=== PATIENT | female | born 1995 | race Caucasian/White ===

== ENCOUNTER → 2021-03-29 15:00 | Outpatient (BNVA) | payer SELFPAY | PROVIDERS: Family Provider Internal Medicine; Visit Provider Nurse Practitioner Women's Health | DX: Z01.419 Encounter for gynecological examination (general) (routine) without abnormal findings (principal); N94.6 Dysmenorrhea, unspecified; N93.9 Abnormal uterine and vaginal bleeding, unspecified | CPT/HCPCS: 88175 ==

== ENCOUNTER 2021-09-04 15:59 | Emergency (ER) | payer SELFPAY ==
[2021-09-04 16:09] VITALS: BP 139/81; PULSE 91; RESP 18; O2SAT 98; BMI 22.8
--- NOTE | 2021-09-04 16:22 | CTR_ITS ---
PROCEDURE INFORMATION: Exam: CT Abdomen And Pelvis With Contrast Exam date and time: 09/04/2021 4:22 PM Age: 25 years old Clinical indication: Abdominal pain; Localized; Right lower quadrant (rlq); Patient HX: C/O rlq abd pain x 3 days TECHNIQUE: Imaging protocol: Computed tomography of the abdomen and pelvis with contrast. Radiation optimization: All CT scans at this facility use at least one of these dose optimization techniques: automated exposure control; mA and/or kV adjustment per patient size (includes targeted exams where dose is matched to clinical indication); or iterative reconstruction. Contrast material: OMNI 300; Contrast volume: 75 ml; Contrast route: INTRAVENOUS (IV); COMPARISON: No relevant prior studies available. RADIATION DOSE METRICS: Total DLP (mGy-cm): 895.25 FINDINGS: Liver: There is mild periportal edema. The liver is otherwise homogeneous in density. Gallbladder and bile ducts: Normal. No calcified stones. No ductal dilation. Pancreas: Click adrenalsThe pancreas is normal. Spleen: The spleen is normal. Adrenal glands: Normal. No mass. Kidneys and ureters: There is an abnormal streaky enhancement pattern of both kidneys compatible with pyelonephritis with focal prominent area of hypodensity is specially in the upper pole left kidney with a poorly marginated rounded appearance measuring 3.2 cm. This appearance may reflect more focal pyelonephritis, early parenchymal abscess or possibly underlying renal mass. There is no evidence of renal calcifications. There is no evidence of hydronephrosis. Stomach and bowel: The wall of the descending colon is thickened but collapsed. This appearance may reflect lack of distention however mild colitis cannot be excluded. Appendix: A normal appendix is identified. Intraperitoneal space: Unremarkable. No free air. No significant fluid collection. Vasculature: Unremarkable.No abdominal aortic aneurysm. Lymph nodes: Unremarkable.No enlarged lymph nodes. Urinary bladder: The bladder is decompressed. Reproductive: Small right ovarian cysts are noted with the largest measuring 1.1 cm. The left ovary is unremarkable. There is 1 prominent varicosity in the left adnexa. The cervix is very prominent but the uterus is retroverted and axial images are obtained obliquely through the angulated cervix and uterus. This may simply be oblique imaging however the patient does have a trace amount of fluid in air in the cervix. Please correlate if there is any concern for infection/cervicitis. Bones/joints: Unremarkable. No acute fracture. Soft tissues: Unremarkable. CT/CT abdomen pelvis w con* [id number] IMPRESSION: 1. Bilateral pyelonephritis. Additional poorly defined area in the upper pole left kidney is concerning for more severe pyelonephritis, early parenchymal abscess or possibly underlying mass. Follow-up MRI may be helpful for further evaluation. 2. Prominent/enlarged poorly defined appearance of the cervix most of which is due to the retroverted cervix and uterus, however the patient does have a trace amount of fluid in air in the cervix. Please correlate if there is any concern for infection/cervicitis. 3. The wall of the descending colon is thickened but collapsed. This appearance may reflect lack of distention however mild colitis cannot be excluded. COMMENTS: Consistent with the [employer]'s Incidental Findings Committee white paper (J Am Dustin Radiol 2018): Any incidental renal lesion less than 1 cm or classified as too small to characterize, or any incidental cystic renal lesion characterized as simple-appearing, is likely benign. No follow-up imaging is recommended for these lesions per consensus recommendations based on imaging criteria. Radiation Dose CTDIVOL = (mGy): DLP = 895.25 (mGy-cm)
--- NOTE | 2021-09-04 16:27 | W.ED.ABDPA2 ---
HPI - Abdominal Pain General: Chief Complaint: Abdominal Pain Stated Complaint: RLQ ABD PAIN: SENT BY [facility] Time Seen by Provider: 09/04/21 16:06 Source: patient Mode of arrival: ambulatory Limitations: no limitations History of Present Illness: HPI narrative: 25-year-old female states she been having left lower quadrant abdominal pain over the last 3 days. States it also radiates into her left flank has some diffuse abdominal pain as well. States she had a fever up to 102. Denies any vomiting or diarrhea. Denies any worsening improving factors. Denies any vaginal bleeding or discharge. MD elicited complaint: abdominal pain Associated Symptoms: Reports chills and fever(s); Denies dysuria Related Data: Date of Last Menstrual Period: 08/24/21 Review of Systems Const: Reports: fever(s) and chills Eyes: Denies: blurry vision or eye discomfort ENMT: Denies: throat pain or dental pain Card: Denies: chest pain Resp: Denies: dyspnea GI: Reports: abdominal pain : Denies: dysuria Musc: Denies: neck pain or back pain Skin/Breast: Denies: rash Neuro: Denies: headache(s) Psych: Denies: depression [place]/Lymph: Denies: easy bruising All/Imm: Denies: urticaria PFSH ED PFSH: Medical History Abnormal uterine bleeding (AUB) 03/13/2019---> free testosterone-normal at 2.3 Prolactin-minimally elevated at 24 (normal-2-23.3) Impression: -Discussed with her that the exam today showed a normal size uterus but no definite masses. Did discuss menorrhagia could be secondary to hormonal changes like hyperthyroidism, elevated prolactin levels, estrogen/progesterone imbalance, uterine pathology like endometrial polyps, fibroids, adenomyosis or ovarian pathology like cysts. I discussed that in order to differentiate these we would need to do further testing like TSH, prolactin levels. Would also require a pelvic sonogram to further assess the uterus and ovaries. -Discussed with her that based on her symptoms she is may have heavy bleeding and is associated dysmenorrhea and I do not think she actually of endometriosis. Reviewed the differential diagnosis of dysmenorrhea-see discussion below -I discussed briefly the management of menorrhagia. I discussed that there was medical as well as surgical options. Discussed options of combined contraception as well as progesterone only medication and all her questions were answered to her satisfaction. She would like to start with combined oral contraceptive pills. -We will obtained records of all the lab work done from [facility] first and then if there are any labs pending we will do that testing. -We will contact her when we have obtained these lab results. Dysmenorrhea -Differential diagnosis of dysmenorrhea discussed with patient. Based on exam exams within normal limits. Patient did not want Pap smear done here today and she would like to have Pap smear done at the [facility] as she is self-pay at this time. -Discussed I would recommend a pelvic ultrasound to rule out any other structural abnormalities causing dysmenorrhea. Discussed is definitely a possibility for the causes of dysmenorrhea would not be on my list of diagnoses. Discussed I would recommend treatment with hormones for at least 3-6 months and if there is no improvement during this time frame I think the next step would need to be a diagnostic laparoscopy to see if she truly does have endometriosis. -She and her family are in agreement with this plan of care. We'll plan for a transvaginal ultrasound in the next 2-3 weeks and I will call her with results. No pertinent past medical history neghx: htn,dm,thyroid,dvt/pe Surgical History No pertinent past surgical history Family History Mother Hypertension Thyroid disease Grandmother Hypertension Maternal Denies family history of Colon cancer Ovarian cancer Diabetes Heart disease Breast cancer Bleeding disorder Uterine cancer Stroke Female Reproductive History: Date of last menstrual period: 08/24/21 Physical Exam Const: COMMON NORMALS: no acute distress, patient oriented x3 and healthy appearing HENMT: COMMON NORMALS: normocephalic and atraumatic HEAD & SCALP: normocephalic and atraumatic Eye: COMMON NORMALS: Equal, round and reactive pupils present and EOMs intact bilaterally PUPIL: Yes Equal, round and reactive pupils present Neck/C-Spine: COMMON NORMALS: full ROM and supple Chest: COMMONS NORMALS: normal inspection of the chest and normal palpation of entire chest wall Resp: COMMON NORMALS: normal respiratory effort, No retractions, No use of accessory muscles and clear to auscultation bilaterally AUSCULTATION: clear to auscultation bilaterally Cardio: COMMON NORMALS: regular rate, regular rhythm and No murmurs present (Cardio) RATE: regular rate RHYTHM: regular rhythm GI: COMMON NORMALS: Normal to inspection, nondistended, normoactive bowel sounds present, Soft to palpation, non-tender and no masses PALPATION: Yes Soft to palpation and Yes Tenderness to palpation present (GI) Details: LLQ Extremity: COMMON NORMALS: normal to inspection and full ROM Neuro: COMMON NORMALS: patient oriented x3, moves all extremities and no focal motor deficits Psych: COMMON NORMALS: mental status grossly normal, Normal thought process present and cooperative THOUGHT PROCESS: Normal thought process present Skin: COMMON NORMALS: no rashes or lesions noted and no wounds GENERAL SKIN EXAM: no rashes or lesions noted Course Vital Signs: Vital signs: Vital Signs Pulse Rate 89 09/04/21 20:59 Respiratory Rate 18 09/04/21 20:59 Blood Pressure 119/89 09/04/21 20:59 Pulse Oximetry 98 09/04/21 20:59 MDM - Abdominal Pain MDM Narrative: Medical decision making narrative: Patient presents for bilateral pyelonephritis with possible early abscess. I did go over these findings with her. She states she feels much improved and would really like to go home. I recommended admission due to her white count and her CT findings. She states that she would rather go home on oral antibiotics. With shared decision making I did express to her at length that we will place her on Cipro did give her IV antibiotics here. I informed her if she has fever or any worsening symptoms whatsoever she is to return to the ER immediately and will need to be admitted 5 antibiotics. She understands and agrees to this plan. She is to follow-up PCP in 3 to 5 days. Lab Data: Labs: Lab Results 09/04/21 09/04/21 09/04/21 16:53 17:01 17:01 WBC 15.1 10^3/uL H 10 ^3/uL (4.0-10.0) RBC 4.88 10^6/uL 10^6 /uL (4.1-5.3) Hgb 14.3 g/dL g/dL (11.5-15.3) Hct 42.4 % % (37.0-47.0) MCV 86.9 fl fl (81-99) MCH 29.3 pg pg (28.0-34.0) MCHC 33.7 g/dL g/dL (30.0-36.0) RDW 12.0 % L % (12.1-15.1) Plt Count 246 10^3/cmm 10^3 /cmm (130-400) MPV 10.6 fL H fL (7.4-10.4) Neut % (Auto) 78.6 % % Lymph % (Auto) 11.6 % % [place] % (Auto) 8.6 % % Eos % (Auto) 0.3 % % Baso % (Auto) 0.4 % % Neut # (Auto) 11.82 10^3/uL H 1 0^3/uL (1.8-7.7) Lymph # (Auto) 1.8 10^3/uL 10^3/ uL (0.8-4.8) [place] # (Auto) 1.3 10^3/uL H 10^ 3/uL (0.2-0.9) Eos # (Auto) 0.1 10^3/uL 10^3/ uL (0.0-0.8) Baso # (Auto) 0.1 10^3/uL 10^3/ uL (0.0-0.1) Nucleated RBC % (a uto) 0 % % Nucleated RBCs # 0.0 /100WBC /100W BC Sodium 139 mmol/L mmol/L (136-145) Potassium 3.3 mmol/L L mmol /L (3.5-5.1) Chloride 102 mmol/L mmol/L (98-107) Carbon Dioxide 25 mmol/L mmol/L (22-29) Anion Gap 15.3 (5-19) BUN 7 mg/dL mg/dL (6-20) Creatinine 0.7 mg/dL mg/dL (0.5-0.9) GFR Calculation 102.8 mL/min mL/m in (90-130) Glucose 88 mg/dL mg/dL (65-115) Calculated Osmolal ity 285 mOsm/kg mOsm/ kg (285-295) Calcium 9.3 mg/dL mg/dL (8.5-10.5) Total Bilirubin 0.3 mg/dL mg/dL (0.15-1.2) AST 13 U/L U/L (0-32) ALT 10 U/L U/L (0-33) Alkaline Phosphata se 70 IU/L IU/L (35-105) Total Protein 7.5 g/dL g/dL (6.6-8.7) Albumin 4.0 g/dL g/dL (3.5-5.2) Globulin 3.5 g/dL g/dL (1.3-4.6) Lipase 22 U/L U/L (13-60) HCG, Qual Urine Color Yellow (Yellow) Urine Appearance Sl hazy (CLEAR) Urine pH 5 (5-7) Ur Specific Gravit y 1.020 (1.005-1.030) Urine Protein Trace (Negative) Urine Glucose (UA) Norm (Normal) Urine Ketones 1+ H (Negative) Urine Blood 3+ H (Negative) Urine Nitrate Negative (Negative) Urine Bilirubin Neg (Negative) Urine Urobilinogen 1 mg/dL H mg/dL (Negative) Ur Leukocyte Macy ase Negative (Negative) Urine RBC 15-25 /hpf H /hpf (0-2) Urine WBC 5-10 /hpf H /hpf (0-5) Ur Squamous Epith Cells 0-4 /hpf H /hpf (0-5) Amorphous Sediment Not Reportable Urine Bacteria 3+ /hpf H /hpf (NONE) Urine Mucus 2+ /hpf /hpf 09/04/21 17:01 WBC RBC Hgb Hct MCV MCH MCHC RDW Plt Count MPV Neut % (Auto) Lymph % (Auto) [place] % (Auto) Eos % (Auto) Baso % (Auto) Neut # (Auto) Lymph # (Auto) [place] # (Auto) Eos # (Auto) Baso # (Auto) Nucleated RBC % (a uto) Nucleated RBCs # Sodium Potassium Chloride Carbon Dioxide Anion Gap BUN Creatinine GFR Calculation Glucose Calculated Osmolal ity Calcium Total Bilirubin AST ALT Alkaline Phosphata se Total Protein Albumin Globulin Lipase HCG, Qual Negative (Negative) Urine Color Urine Appearance Urine pH Ur Specific Gravit y Urine Protein Urine Glucose (UA) Urine Ketones Urine Blood Urine Nitrate Urine Bilirubin Urine Urobilinogen Ur Leukocyte Macy ase Urine RBC Urine WBC Ur Squamous Epith Cells Amorphous Sediment Urine Bacteria Urine Mucus Imaging Data ^: CT Abd/Pel: Attestation: I personally reviewed and interpreted this imaging study as follows: Radiologist's impression: imaging criteria. Radiation Dose CTDIVOL = (mGy): DLP = 895.25 (mGy-cm) Dictated By: Ai Sanchez Signed By: Ai Sanchez Signed Date/Time: 09/04/212115 DD/ [id number] [address] [address] Scan Report Signed Patient: Beverly Sneed Unit #: [id number] : 1995 Age/Sex: 25 / F ADM Date: 09/04/21 Loc: ER Room/Bed: Attending Dr: Ordering Provider/Ordering MD: Blessing Warren MD Date of Service: 09/04/21 Procedure(s): CT abdomen pelvis w con* [id number] Accession Number(s): [id number] Report Number: [id number] PROCEDURE INFORMATION: Exam: CT Abdomen And Pelvis With Contrast Exam date and time: 09/04/2021 4:22 PM Age: 25 years old Clinical indication: Abdominal pain; Localized; Right lower quadrant (rlq); Patient HX: C/O rlq abd pain x 3 days TECHNIQUE: Imaging protocol: Computed tomography of the abdomen and pelvis with contrast. Radiation optimization: All CT scans at this facility use at least one of these dose optimization techniques: automated exposure control; mA and/or kV adjustment per patient size (includes targeted exams where dose is matched to clinical indication); or iterative reconstruction. Contrast material: OMNI 300; Contrast volume: 75 ml; Contrast route: INTRAVENOUS (IV); COMPARISON: No relevant prior studies available. RADIATION DOSE METRICS: Total DLP (mGy-cm): 895.25 FINDINGS: Liver: There is mild periportal edema. The liver is otherwise homogeneous in density. Gallbladder and bile ducts: Normal. No calcified stones. No ductal dilation. Pancreas: Click adrenalsThe pancreas is normal. Spleen: The spleen is normal. Adrenal glands: Normal. No mass. Kidneys and ureters: There is an abnormal streaky enhancement pattern of both kidneys compatible with pyelonephritis with focal prominent area of hypodensity is specially in the upper pole left kidney with a poorly marginated rounded appearance measuring 3.2 cm. This appearance may reflect more focal pyelonephritis, early parenchymal abscess or possibly underlying renal mass. There is no evidence of renal calcifications. There is no evidence of hydronephrosis. Stomach and bowel: The wall of the descending colon is thickened but collapsed. This appearance may reflect lack of distention however mild colitis cannot be excluded. Appendix: A normal appendix is identified. Intraperitoneal space: Unremarkable. No free air. No significant fluid collection. Vasculature: Unremarkable.No abdominal aortic aneurysm. Lymph nodes: Unremarkable.No enlarged lymph nodes. Urinary bladder: The bladder is decompressed. Reproductive: Small right ovarian cysts are noted with the largest measuring 1.1 cm. The left ovary is unremarkable. There is 1 prominent varicosity in the left adnexa. The cervix is very prominent but the uterus is retroverted and axial images are obtained obliquely through the angulated cervix and uterus. This may simply be oblique imaging however the patient does have a trace amount of fluid in air in the cervix. Please correlate if there is any concern for infection/cervicitis. Bones/joints: Unremarkable. No acute fracture. Soft tissues: Unremarkable. CT/CT abdomen pelvis w con* [id number] IMPRESSION: 1. Bilateral pyelonephritis. Additional poorly defined area in the upper pole left kidney is concerning for more severe pyelonephritis, early parenchymal abscess or possibly underlying mass. Follow-up MRI may be helpful for further evaluation. 2. Prominent/enlarged poorly defined appearance of the cervix most of which is due to the retroverted cervix and uterus, however the patient does have a trace amount of fluid in air in the cervix. Please correlate if there is any concern for infection/cervicitis. 3. The wall of the descending colon is thickened but collapsed. This appearance may reflect lack of distention however mild colitis cannot be excluded. Discharge Plan Discharge Patient Disposition: Home Clinical Impression: Pyelonephritis Condition: Stable Prescriptions: New hydrocodone-acetaminophen 5-325 mg tablet 1 tab PO Q6H PRN (Reason: pain) Qty: 14 RF: 0 ondansetron 4 mg tablet,disintegrating 4 mg PO Q6H PRN (Reason: nausea and vomiting) Qty: 14 RF: 0 ciprofloxacin HCl 500 mg tablet 500 mg PO BID Qty: 14 RF: 0 No Action norethindrone-e.estradiol-iron [Loestrin Fe 1.5/30 (28-Day)] 1.5 mg-30 mcg (21)/75 mg (7) tablet 1 tab PO DAILY Qty: 84 RF: 3 Discharge Orders: Discharge ED (Routine); Ordered 09/04/21 Ordered By: Blessing Warren Referrals: Mayela Denis DO [Primary Care Provider] - Discharge Diet: Advance as tolerated Discharge Activity: Resume usual activity Patient Instructions: Kidney Infection (ED), Opioid Safety Coding Level of Care Code ED [employer] for Ruthg Fwd Exam Comprehensive
[2021-09-04 17:05] VITALS: BP 113/64; PULSE 64; RESP 18; O2SAT 100
[2021-09-04 17:08] VITALS: RESP 20
[2021-09-04] MEDS: morphine 4 mg/mL SDV 1 mL IVP (17:08)
[2021-09-04] MEDS: ondansetron 2 mg/ML SDV 2 mL 4 MG IVP (17:09)
[2021-09-04] MEDS: sodium chloride 0.9% 1,000 ML 999 ML IV (17:09)
[2021-09-04 17:34] LABS: Basophils # 0.1 10^3/uL (0.0-0.1); Basophils % 0.4 %; Eosinophils # 0.1 10^3/uL (0.0-0.8); Eosinophils % 0.3 %; Hematocrit 42.4 % (37.0-47.0); Hemoglobin 14.3 g/dL (11.5-15.3); Lymphocytes # 1.8 10^3/uL (0.8-4.8); Lymphocytes % 11.6 %; Mean Corpuscular HGB Conc 33.7 g/dL (30.0-36.0); Mean Corpuscular Hemoglobin 29.3 pg (28.0-34.0); Mean Corpuscular Volume 86.9 fl (81-99); Mean Platelet Volume 10.6 fL (7.4-10.4); Monocytes # 1.3 10^3/uL (0.2-0.9); Monocytes % 8.6 %; Neutrophils # 11.82 10^3/uL (1.8-7.7); Neutrophils % 78.6 %; Nucleated Red Blood Cells % 0 %; Platelet Count 246 10^3/cmm (130-400); Red Blood Count 4.88 10^6/uL (4.1-5.3); White Blood Count 15.1 10^3/uL (4.0-10.0)
[2021-09-04 17:46] LABS: HCG, Serum Qual Negative (Negative)
[2021-09-04 17:49] LABS: Add Urine Microscopic? YES; Bilirubin Urine Neg (Negative); Blood Urine 3+ (Negative); Glucose Urine UA Norm (Normal); Ketones Urine 1+ (Negative); Leukocyte Esterase Urine Negative (Negative); Nitrate Urine Negative (Negative); Protein Urine Trace (Negative); Urine Appearance SL Hazy (CLEAR); Urine Color Yellow (Yellow); Urobilinogen Urine 1 mg/dL (Negative); pH Urine 5 (5-7)
[2021-09-04 17:50] LABS: RBC Urine 15-25 /hpf (0-2); Squamous Epithelial Cell Urine 0-4 /hpf (0-5)
[2021-09-04 17:51] LABS: Add Urine Culture? Yes; Bacteria Urine 3+ /hpf; Mucus Urine 2+ /hpf
[2021-09-04 17:55] LABS: Alanine Aminotransferase 10 U/L (0-33); Alkaline Phosphatase 70 IU/L (35-105); Anion Gap 15.3 (5-19); Aspartate Amino Transferase 13 U/L (0-32); Blood Urea Nitrogen 7 mg/dL (6-20); Calcium 9.3 mg/dL (8.5-10.5); Carbon Dioxide 25 mmol/L (22-29); Chloride 102 mmol/L (98-107); Globulin 3.5 g/dL (1.3-4.6); Glomerular Filtration Rate 102.8 mL/min (90-130); Glucose 88 mg/dL (65-115); Lipase 22 U/L (13-60); Osmolality Calculated 285 mOsm/kg (285-295); Potassium 3.3 mmol/L (3.5-5.1); Sodium 139 mmol/L (136-145); Total Bilirubin 0.3 mg/dL (0.15-1.2); Total Protein 7.5 g/dL (6.6-8.7)
[2021-09-04] MEDS: iohexol 300 mg/mL 100 mL Btl IV (17:55)
[2021-09-04] MEDS: cefTRIAXone 1,000 MG in sodium chloride 0.9% (plus) 50 ML 100 MG IV (18:21)
[2021-09-04 20:59] VITALS: BP 119/89; PULSE 89; RESP 18; O2SAT 98
[2021-09-04 21:34] VITALS: BP 112/77; PULSE 76; RESP 18; O2SAT 100
== END 2021-09-04 21:35 | disposition home or self-care (01) ==
PROVIDERS: Emergency Provider Emergency Medicine; PCP Internal Medicine
DX: N12 Tubulo-interstitial nephritis, not specified as acute or chronic (principal)
CPT/HCPCS: 74177; 80053; 81001; 83690; 84703; 85025; 87077; 87086; 87186; 96365; 96375; 99284; J0696; J2270; J2405; J7030; Q9967

== ENCOUNTER → 2023-01-03 10:36 | Outpatient (BNVA) | payer OTHER, SELFPAY | PROVIDERS: PCP Internal Medicine; Visit Provider Registered Nurse Neonatal Intensive Care | DX: J02.9 Acute pharyngitis, unspecified (principal) | CPT/HCPCS: 87880 ==

== ENCOUNTER 2023-03-03 21:18 | Emergency (ER) | payer OTHER, SELFPAY ==
--- NOTE | 2023-03-03 21:20 | XRR_ITS ---
PROCEDURE INFORMATION: Exam: XR Right Hand Exam date and time: 03/03/2023 9:32 PM Age: 27 years old Clinical indication: Injury or trauma; Other: 3rd finger got caught; Other: Finger caught; Pulled; Possible crush; Patient HX: Per PT - right 3rd finger was caught somehow while working with a mayela TECHNIQUE: Imaging protocol: Radiologic exam of the right hand. Views: 3 or more views. COMPARISON: No relevant prior studies available. FINDINGS: Bones/joints: There are oblique fractures through the distal aspect of the 3rd digit distal phalanx. Soft tissues: Edema and/or hematoma is present in the soft tissues adjacent to the fracture site. XR/XR hand RT min 3V* [id number] IMPRESSION: There are oblique fractures through the distal aspect of the 3rd digit distal phalanx.
[2023-03-03 21:24] VITALS: BP 143/87; PULSE 87; RESP 16; TEMP 37; O2SAT 99; BMI 24.7
--- NOTE | 2023-03-03 21:31 | ED_ITS ---
HPI - Extremity Problem General: Chief complaint: Extremity Injury, Upper Stated complaint: right hand injury Time Seen by Provider: 03/03/23 21:23 History of Present Illness: 27-year-old female comes in today for injury to the right middle finger. Patient states that she was working with a horse and it yanked away from her causing it to become intertwined in the bridle. Patient appears nontoxic. Patient appears in moderate pain. Associated symptoms: Deny chest pain Review of Systems General: Reports: 10 or more systems reviewed and unremarkable except in HPI and below ENMT: Denies: throat pain Card: Denies: chest pain GI: Denies: vomiting : Denies: difficulty voiding Musc: Reports: extremity pain Skin/Breast: Reports: other (Middle finger nail injury) Psych: Denies: anxiety Schuyler/Lymph: Denies: easy bruising PFS ED PFSH: Medical History Abnormal uterine bleeding (AUB) 03/13/2019---> free testosterone-normal at 2.3 Prolactin-minimally elevated at 24 (normal-2-23.3) Impression: -Discussed with her that the exam today showed a normal size uterus but no definite masses. Did discuss menorrhagia could be secondary to hormonal changes like hyperthyroidism, elevated prolactin levels, estrogen/progesterone imbalance, uterine pathology like endometrial polyps, fibroids, adenomyosis or ovarian pathology like cysts. I discussed that in order to differentiate these we would need to do further testing like TSH, prolactin levels. Would also require a pelvic sonogram to further assess the uterus and ovaries. -Discussed with her that based on her symptoms she is may have heavy bleeding and is associated dysmenorrhea and I do not think she actually of endometriosis. Reviewed the differential diagnosis of dysmenorrhea-see discussion below -I discussed briefly the management of menorrhagia. I discussed that there was medical as well as surgical options. Discussed options of combined contraception as well as progesterone only medication and all her questions were answered to her satisfaction. She would like to start with combined oral contraceptive pills. -We will obtained records of all the lab work done from [facility] first and then if there are any labs pending we will do that testing. -We will contact her when we have obtained these lab results. Dysmenorrhea -Differential diagnosis of dysmenorrhea discussed with patient. Based on exam exams within normal limits. Patient did not want Pap smear done here today and she would like to have Pap smear done at the health department as she is self-pay at this time. -Discussed I would recommend a pelvic ultrasound to rule out any other structural abnormalities causing dysmenorrhea. Discussed is definitely a possibility for the causes of dysmenorrhea would not be on my list of diagnoses. Discussed I would recommend treatment with hormones for at least 3-6 months and if there is no improvement during this time frame I think the next step would need to be a diagnostic laparoscopy to see if she truly does have endometriosis. -She and her family are in agreement with this plan of care. We'll plan for a transvaginal ultrasound in the next 2-3 weeks and I will call her with results. No pertinent past medical history neghx: htn,dm,thyroid,dvt/pe Surgical History No pertinent past surgical history Family History Mother Hypertension Thyroid disease Grandmother Hypertension Maternal Denies family history of Colon cancer Ovarian cancer Diabetes Heart disease Breast cancer Bleeding disorder Uterine cancer Stroke Female Reproductive History: Date of last menstrual period: 01/31/23 Physical Exam 2 Const: COMMON NORMALS: alert HENMT: COMMON NORMALS: normocephalic HEAD & SCALP: normocephalic Neck/C-Spine: COMMON NORMALS: full ROM Resp: COMMON NORMALS: normal respiratory effort Cardio: COMMON NORMALS: regular rate RATE: regular rate Back/Pelvis: COMMON NORMALS: thoracic and lumbar spine normal to inspection Extremity: RIGHT UPPER EXTREMITY: Yes hand & digits (Middle finger distal swelling and redness) Neuro: SENSORIUM/ORIENTATION: Yes alert Skin: NAILS: other (Subungual hematoma to the distal finger light bleeding from nail) Course Vital Signs: Vital signs: Vital Signs Temperature 98.6 F 03/03/23 21:24 Pulse Rate 87 03/03/23 21:24 Respiratory Rate 16 03/03/23 21:24 Blood Pressure 143/87 03/03/23 21:24 Pulse Oximetry 99 03/03/23 21:24 Oxygen Delivery Me thod 03/03/23 21:24 MDM - Extremity (Nontraumatic) Medical Decision Making 27-year-old female comes in today with injury to the right hand middle finger. On exam patient has some swelling and redness to the distal digit of the right middle finger. There is also a small subungual hematoma. There is some mild bleeding from the base of the nail. No signs of significant deformity is noted. Differential diagnosis includes contusion, dislocation, fracture. X-ray of the finger noted a tuft fracture of the distal phalanx of the right middle finger. There is a mild subungual hematoma. Reviewed exam with patient recommended elevation of the finger, acetaminophen ibuprofen to control pain, and some hydrocodone for severe pain. Patient was encouraged to drink plenty of fluids follow-up with primary care or return to ED for new concerns. Discharge Plan Discharge Patient Disposition: Home Clinical Impression: Closed fracture of tuft of distal phalanx of finger Subungual hematoma of digit of hand Qualifiers: Encounter type: initial encounter Qualified Code(s): S60.10XA - Contusion of unspecified finger with damage to nail, initial encounter Condition: Stable Prescriptions: New hydrocodone-acetaminophen 5-325 mg tablet 1 tab PO Q8H PRN (Reason: pain (scale score 7-10)) Qty: 5 0RF No Action amoxicillin 500 mg tablet 500 mg PO BID 10 Days Qty: 20 0RF Discharge Orders: Discharge ED (Routine); Ordered 03/03/23 Ordered By: Juanito Huggins Referrals: Mayela Denis, [Primary Care Provider] - Discharge Diet: Usual diet Discharge Activity: Increase activity as tolerated Patient Instructions: Finger Fracture (ED) Activity Restrictions/Additional Instructions: Elevate finger. Use ice for swelling and pain. Use acetaminophen ibuprofen to control pain. Use hydrocodone for severe pain. Clean finger twice daily and apply some antibiotic ointment to the nailbed. Follow-up with primary care in 3 to 5 days for recheck. Return to ED for new concerns. Coding Level of Care Code ED [facility] [employer] for Sheri Flowers
[2023-03-03] MEDS: bacitracin ointment Pkt 1 EACH TOPICAL (21:47)
[2023-03-03] MEDS: HYDROcodone-acetaminophen 5-325 mg Tablet 1 TAB PO (21:47)
== END 2023-03-03 21:53 | disposition home or self-care (01) ==
PROVIDERS: Emergency Provider Nurse Practitioner Family; PCP Internal Medicine
DX: S62.662A Nondisplaced fracture of distal phalanx of right middle finger, initial encounter for closed fracture (principal); S60.131A Contusion of right middle finger with damage to nail, initial encounter; W23.0XXA Caught, crushed, jammed, or pinched between moving objects, initial encounter
CPT/HCPCS: 73130; 99283

== ENCOUNTER → 2023-07-02 11:57 | Outpatient (BNVA) | payer OTHER, SELFPAY | PROVIDERS: PCP Internal Medicine; Visit Provider Registered Nurse Neonatal Intensive Care | DX: S99.912A Unspecified injury of left ankle, initial encounter (principal); X58.XXXA Exposure to other specified factors, initial encounter | CPT/HCPCS: 73610 ==

== ENCOUNTER 2024-08-02 17:28 | Emergency (ER) | payer BC, SELFPAY ==
[2024-08-02 17:50] VITALS: BP 139/83; PULSE 73; RESP 17; TEMP 37.1; O2SAT 100; BMI 23.8
--- NOTE | 2024-08-02 18:02 | USR_ITS ---
PROCEDURE INFORMATION: Exam: US , Transvaginal and US Duplex Artery or Vein, Ovaries, Limited Exam date and time: 08/02/2024 6:27 PM Age: 28 years old Clinical indication: Lmp or gestational age (in weeks): Patient states 11 weeks. Ultrasound 6w4d; Antepartum complications; Bleeding; Additional info: Vaginal bleeding, cramping LABS AND CLINICAL REPORTS: Gestational age (Established): 11 w 5 d Estimated due date (Established): 02/16/2025 TECHNIQUE: Imaging protocol: Real-time transvaginal obstetrical ultrasound of the maternal pelvis and a first trimester with image documentation. Transvaginal imaging was used for better evaluation of the fetus, adnexa, and/or cervix. Real-time duplex ultrasound scan of the arterial or venous flow of the ovaries with B-mode, color Doppler flow and spectral waveform analysis, Limited Duplex. Duplex exam was performed to evaluate for torsion and other vascular conditions. COMPARISON: CT abdomen pelvis w con* [id number] 09/04/2021 5:51 PM FINDINGS: GESTATION: Gestation: There is a thin walled fluid collection in fundal endometrium with no visible internal parts and no visible yolk sac. The fluid collection demonstrates angular margins. Possible abnormal gestational sac with mean diameter 1.7 cm (6 weeks 4 days). heart rate: Not detected Placenta: Not visible. Amniotic fluid (Qualitative): Not applicable. BIOMETRY: Mean sac diameter: 1.68 cm. EGA (MSD) is 6 w 4 d MATERNAL: Uterus: The uterus is anteverted. Uterine contours are normal. Cervix: Cervix is closed. Right ovary/adnexa: The right ovary is morphologically normal. The right ovary measures 2.1 x 1.7 x 1.3 cm. There is normal color Doppler signal in the right ovary. Left ovary/adnexa: The left ovary is morphologically normal. The left ovary measures 2.3 x 1.9 x 1.7 cm. There is normal color Doppler signal in the left ovary. Intraperitoneal space: There is no free fluid in the pelvis. Vasculature: Arterial and venous blood flow is demonstrated in the right ovary by spectral Doppler interrogation. Arterial and venous blood flow is demonstrated in the left over ovary by spectral Doppler interrogation. US/US OB <=14 wk fetus w transvag IMPRESSION: Irregular thin walled intrauterine fluid collection. Question abnormal gestational sac (size corresponds to 6 weeks 4 day gestation). No fetus or yolk sac is visible. Findings are suspicious for, but not diagnostic of, failure. Recommend follow-up ultrasound in 7-10 days to assess viability.
--- NOTE | 2024-08-02 18:04 | W.ED.ABDPA2 ---
HPI - Abdominal Pain General: Chief Complaint: Abdominal Pain Stated Complaint: 11 wks - vaginal bleeding Time Seen by Provider: 08/02/24 17:36 Source: patient Mode of arrival: ambulatory Limitations: no limitations History of Present Illness: Patient is a 28-year-old female present to the emergency department complaining of vaginal bleeding for a day. States she had some spotting last night, currently is 11 weeks and sees OB in [place]. She states this has evolved into heavier bleeding today with some abdominal cramping. This is her first . Denies passing any clots. Denies any urinary symptoms. She is also stating she has not had any palpitations, syncopal episodes, and has no pertinent past medical history to report. She states she googled her symptoms and that this made her concerned so she presented for evaluation MD elicited complaint: other (Vaginal bleeding) Onset (ago): day(s) Pain Consistency: constant Associated Symptoms: Reports GI cramping; Denies bloating, change in stool character, chills, constipation, diarrhea, dysuria, fever(s), hematochezia, nausea and vomiting Related Data Date of Last Menstrual Period: 05/20/24 Home Medications Medication Instructions Recorded Confirmed Unable to Assess 07/02/23 07/02/23 Allergies Allergy/AdvReac Type Severity Reaction Status Date / Time No Known Allergies Allergy Verified 08/02/24 17:54 Review of Systems General: Reports: 10 or more systems reviewed and unremarkable except in HPI and below Const: Denies: fever(s), chills, change in appetite, change in weight or diaphoresis ENMT: Denies: throat pain or hoarseness Card: Denies: chest pain, palpitations or lightheadedness Resp: Denies: dyspnea, productive cough or wheezing GI: Reports: abdominal pain and GI cramping; Denies: nausea, vomiting, diarrhea, constipation, bloating, change in stool character or hematochezia : Reports: vaginal bleeding; Denies: flank pain, difficulty voiding, dysuria, urinary frequency or urinary urgency Musc: Denies: neck pain or back pain Skin/Breast: Denies: rash or new lesions Neuro: Denies: headache(s) or dizziness PFS ED PFSH: Medical History No pertinent past medical history neghx: htn,dm,thyroid,dvt/pe Dysmenorrhea -Differential diagnosis of dysmenorrhea discussed with patient. Based on exam exams within normal limits. Patient did not want Pap smear done here today and she would like to have Pap smear done at the health department as she is self-pay at this time. -Discussed I would recommend a pelvic ultrasound to rule out any other structural abnormalities causing dysmenorrhea. Discussed is definitely a possibility for the causes of dysmenorrhea would not be on my list of diagnoses. Discussed I would recommend treatment with hormones for at least 3-6 months and if there is no improvement during this time frame I think the next step would need to be a diagnostic laparoscopy to see if she truly does have endometriosis. -She and her family are in agreement with this plan of care. We'll plan for a transvaginal ultrasound in the next 2-3 weeks and I will call her with results. Abnormal uterine bleeding (AUB) 03/13/2019---> free testosterone-normal at 2.3 Prolactin-minimally elevated at 24 (normal-2-23.3) Impression: -Discussed with her that the exam today showed a normal size uterus but no definite masses. Did discuss menorrhagia could be secondary to hormonal changes like hyperthyroidism, elevated prolactin levels, estrogen/progesterone imbalance, uterine pathology like endometrial polyps, fibroids, adenomyosis or ovarian pathology like cysts. I discussed that in order to differentiate these we would need to do further testing like TSH, prolactin levels. Would also require a pelvic sonogram to further assess the uterus and ovaries. -Discussed with her that based on her symptoms she is may have heavy bleeding and is associated dysmenorrhea and I do not think she actually of endometriosis. Reviewed the differential diagnosis of dysmenorrhea-see discussion below -I discussed briefly the management of menorrhagia. I discussed that there was medical as well as surgical options. Discussed options of combined contraception as well as progesterone only medication and all her questions were answered to her satisfaction. She would like to start with combined oral contraceptive pills. -We will obtained records of all the lab work done from [facility] first and then if there are any labs pending we will do that testing. -We will contact her when we have obtained these lab results. Surgical History No pertinent past surgical history Family History Mother Hypertension Thyroid disease Grandmother Hypertension Maternal Denies family history of Colon cancer Ovarian cancer Diabetes Heart disease Breast cancer Bleeding disorder Uterine cancer Stroke Female Reproductive History: Date of last menstrual period: 05/20/24 Physical Exam Const: COMMON NORMALS: no acute distress, average body habitus, patient oriented x3, no limitations, healthy appearing, alert and well nourished GENERAL APPEARANCE: cooperative and comfortable ORIENTATION/CONSCIOUSNESS: Yes awake HENMT: COMMON NORMALS: normocephalic, atraumatic, hearing grossly normal bilaterally, external ears normal, Normal external nose present, Normal nasal mucous membranes and turbinates present and moist oral mucous membranes HEAD & SCALP: normocephalic and atraumatic NOSE: Normal external nose present and Normal nasal mucous membranes and turbinates present EXTERNAL EAR: Yes external ears normal Eye: COMMON NORMALS: Equal, round and reactive pupils present, EOMs intact bilaterally, conjunctivae normal and normal visual burgess by confrontation CONJUNCTIVA: Yes conjunctivae normal PUPIL: Yes Equal, round and reactive pupils present Neck/C-Spine: COMMON NORMALS: full ROM, supple, no meningeal signs and no JVD Resp: COMMON NORMALS: normal respiratory effort, No retractions, No use of accessory muscles and clear to auscultation bilaterally AUSCULTATION: clear to auscultation bilaterally, no crackles, no rales, no rhonchi and no wheezes Cardio: COMMON NORMALS: no JVD, regular rate, regular rhythm, S1 normal heart sound present, S2 normal heart sound present, No gallops present (Cardio), No clicks present (Cardio), No murmurs present (Cardio), No rub (Cardio) and Peripheral pulses 2+ throughout RATE: regular rate RHYTHM: regular rhythm HEART SOUNDS: S1 normal heart sound present and S2 normal heart sound present PERIPHERAL PULSES: Peripheral pulses 2+ throughout GI: COMMON NORMALS: Normal to inspection, nondistended, normoactive bowel sounds present, Soft to palpation, No hepatosplenomegaly present and no masses AUSCULTATION: Yes normoactive bowel sounds PALPATION: Yes Soft to palpation, Yes Tenderness to palpation present (GI) (Mild bilateral lower quadrant abdominal tenderness to palpation), No Guarding due to palpation present (GI), No Rigid due to palpation and Yes No hepatosplenomegaly present RECTAL EXAM: deferred : COMMON NORMALS: Yes no CVA tenderness BLADDER/KIDNEY EXAM: Yes no CVA tenderness Back/Pelvis: COMMON NORMALS: no CVA tenderness Extremity: COMMON NORMALS: normal to inspection and full ROM Neuro: COMMON NORMALS: patient oriented x3, moves all extremities, no focal motor deficits and no sensory deficits noted SENSORIUM/ORIENTATION: Yes alert MENINGEAL SIGNS: Yes no meningeal signs Psych: COMMON NORMALS: mental status grossly normal, cooperative and speech normal SPEECH: Yes normal speech Skin: COMMON NORMALS: no rashes or lesions noted GENERAL SKIN EXAM: no rashes or lesions noted Course Vital Signs: Vital signs: Vital Signs Temperature 98.7 F 08/02/24 17:50 Pulse Rate 68 08/02/24 19:52 Respiratory Rate 17 08/02/24 17:50 Blood Pressure 131/82 08/02/24 19:52 Pulse Oximetry 99 08/02/24 19:52 Oxygen Delivery Me thod Room Air 08/02/24 17:50 MDM - Abdominal Pain Medical Decision Making Patient presented with vaginal bleeding abdominal pain, reported to be 11 weeks . Sees OB in [place], has not had any ultrasound done at this time. Vitals were normal on arrival. Her blood work was normal, except her quantitative hCG was lower than anticipated for being 11 weeks of gestation. Ultrasound did confirm that there was no viable gestation at this time with no identifiable heart tones, and likely is a missed . Patient is informed of these findings and instructed to follow-up with her OB, of which she agrees. Return precautions were given. Lab Data 08/02/24 18:22 Labs/Radiology: Radiology Impressions Obstetrics Ultrasound 08/02/24 18:02 IMPRESSION: Irregular thin walled intrauterine fluid collection. Question abnormal gestational sac (size corresponds to 6 weeks 4 day gestation). No fetus or yolk sac is visible. Findings are suspicious for, but not diagnostic of, failure. Recommend follow-up ultrasound in 7-10 days to assess viability. Laboratory Results WBC 10.75 10^3/uL (3.29-11.43) 08/02/24 18:22 RBC 4.69 10^6/uL (3.85-5.65) 08/02/24 18:22 Hgb 13.70 g/dL (11.27-16.99) 08/02/24 18:22 Hct 39.9 % (36-47) 08/02/24 18:22 MCV 85.1 fl (85-98) 08/02/24 18:22 MCH 29.2 pg (27-33) 08/02/24 18:22 MCHC 34.3 g/dL (30-55) 08/02/24 18:22 RDW 12.5 % (12.1-15.1) 08/02/24 18:22 Plt Count 245 10^3/cmm (157-399) 08/02/24 18:22 MPV 10.1 fL (7.4-10.4) 08/02/24 18:22 Neut % (Auto) 61.4 % 08/02/24 18:22 Lymph % (Auto) 31.6 % 08/02/24 18:22 Spink % (Auto) 4.7 % 08/02/24 18:22 Eos % (Auto) 1.2 % 08/02/24 18:22 Baso % (Auto) 0.5 % 08/02/24 18:22 Neut # (Auto) 6.60 10^3/uL (1.8-7.7) 08/02/24 18:22 Lymph # (Auto) 3.4 10^3/uL (0.8-4.8) 08/02/24 18:22 Spink # (Auto) 0.5 10^3/uL (0.2-0.9) 08/02/24 18:22 Eos # (Auto) 0.1 10^3/uL (0.0-0.8) 08/02/24 18:22 Baso # (Auto) 0.1 10^3/uL (0.0-0.1) 08/02/24 18:22 Nucleated RBC % (auto) 0 % 08/02/24 18: Nucleated RBCs # 0.0 /100WBC 08/02/24 18:22 Ser , Semi-Qnt 6905.00 mIU/mL 08/02/24 18:22 All radiology interpretation(s) finalized by discharge Discharge Plan Discharge Patient Disposition: Home Clinical Impression: Missed Condition: Stable Prescriptions: No Action Unable to Assess Discharge Orders: Discharge ED (Routine); Ordered 08/02/24 Ordered By: Harley Ardon Referrals: Mayela Denis, [Primary Care Provider] - Discharge Diet: Usual diet Discharge Activity: Increase activity as tolerated Patient Instructions: Miscarriage (ED) Activity Restrictions/Additional Instructions: Please follow-up with OB next week as discussed. Take ibuprofen or Tylenol for abdominal cramping. Return with any new or worsening of symptoms you may have. Coding Level of Care Code ED [employer] for Sheri Flowers
[2024-08-02 18:29] LABS: Basophils # 0.1 10^3/uL (0.0-0.1); Basophils % 0.5 %; Eosinophils # 0.1 10^3/uL (0.0-0.8); Eosinophils % 1.2 %; Hematocrit 39.9 % (36-47); Lymphocytes # 3.4 10^3/uL (0.8-4.8); Lymphocytes % 31.6 %; Mean Corpuscular HGB Conc 34.3 g/dL (30-55); Mean Corpuscular Hemoglobin 29.2 pg (27-33); Mean Corpuscular Volume 85.1 fl (85-98); Mean Platelet Volume 10.1 fL (7.4-10.4); Monocytes # 0.5 10^3/uL (0.2-0.9); Monocytes % 4.7 %; Neutrophils % 61.4 %; Nucleated Red Blood Cells % 0 %; Platelet Count 245 10^3/cmm (157-399); Red Blood Count 4.69 10^6/uL (3.85-5.65); Red Cell Distribution Width 12.5 % (12.1-15.1); White Blood Count 10.75 10^3/uL (3.29-11.43)
[2024-08-02 19:52] VITALS: BP 131/82; PULSE 68; O2SAT 99
== END 2024-08-02 19:53 | disposition home or self-care (01) ==
PROVIDERS: Emergency Provider Physician Assistant; PCP Internal Medicine
DX: O02.1 Missed abortion (principal)
CPT/HCPCS: 36415; 76801; 76817; 84702; 85025; 86850; 86900; 99284

== ENCOUNTER 2025-01-15 15:01 | Emergency (ER) | payer SELFPAY ==
--- NOTE | 2025-01-15 15:04 | US_ITS ---
WS: [id number] EARLY OBSTETRICAL ULTRASOUND (<14 WEEKS). HISTORY: abd pain preg COMPARISON: None available. Single intrauterine gestational sac is identified. By sac measurement gestation is estimated at 6 weeks 3 days. The cervix is closed. There is a yolk sac but no pole or cardiac activity identified. No free fluid. RIGHT ovary is enlarged measuring 4.4 x 3.2 x 4.0 cm. Lacy reticulations throughout the RIGHT ovary most consistent with a hemorrhagic cyst. No increased vascularity. Anil clot within the central portion of the hemorrhagic cyst. US/US OB <= 14 weeks fetus [id number] IMPRESSION: 1. Single intrauterine gestational sac. Sac measurement consistent with a gest ation of 6 weeks and 3 days. 2. No pole or cardiac activity is identified. Recommend 1 week follow-up transvaginal pelvic ultrasound. 3. Large RIGHT ovarian hemorrhagic cyst.
[2025-01-15 16:13] VITALS: BP 126/80; PULSE 78; RESP 14; TEMP 36.7; O2SAT 97; BMI 23.0
[2025-01-15 17:52] LABS: Basophils # 0.1 10^3/uL (0.0-0.1); Basophils % 0.4 %; Eosinophils % 0.3 %; Hematocrit 41.8 % (36-47); Lymphocytes # 2.4 10^3/uL (0.8-4.8); Lymphocytes % 20.1 %; Mean Corpuscular HGB Conc 33.7 g/dL (30-55); Mean Corpuscular Volume 85.8 fl (85-98); Mean Platelet Volume 10.4 fL (7.4-10.4); Monocytes # 0.6 10^3/uL (0.2-0.9); Monocytes % 4.8 %; Neutrophils # 8.73 10^3/uL (1.8-7.7); Neutrophils % 73.8 %; Nucleated Red Blood Cells % 0 %; Platelet Count 248 10^3/cmm (157-399); Red Blood Count 4.87 10^6/uL (3.85-5.65); Red Cell Distribution Width 12.2 % (12.1-15.1); White Blood Count 11.83 10^3/uL (3.29-11.43)
[2025-01-15 18:32] VITALS: BP 135/72; PULSE 84; RESP 16; O2SAT 94
--- NOTE | 2025-01-15 18:48 | W.ED.GENADLT ---
HPI - General Adult General: Chief complaint: General Medical Stated complaint: Sent from clinic rule out ectopic Time Seen by Provider: 01/15/25 18:16 Source: patient Mode of arrival: ambulatory Limitations: no limitations History of Present Illness: Patient is a 29-year-old female with past medical history of dysmenorrhea, currently G2, P0 who presents to the emergency department for ectopic rule out. States that she was at [facility] today and was requesting routine ultrasound for her early , and they sent her over here for concerns of ectopic . Patient has not had any symptoms, no vaginal bleeding, pain, syncopal episodes, or other concerns. History of 1 spontaneous miscarriage, states she has had 1 at home positive test and is set to see her OB in a couple of weeks. Vitals within normal limits at this time. MD complaint: Present for ectopic rule out Associated symptoms: Deny chest pain, diaphoresis, dyspnea, headache(s), nausea, rash, palpitations, syncope or vomiting Related Data Home Medications ?Medication ?Instructions ?Recorded ?Confirmed Unable to Assess 07/02/23 07/02/23 Allergies Allergy/AdvReac Type Severity Reaction Status Date / Time No Known Allergies Allergy Verified 01/15/25 16:17 Review of Systems General: Reports: 10 or more systems reviewed and unremarkable except in HPI and below Const: Reports: other (Present for ectopic rule out); Denies: fever(s), chills, change in appetite, change in weight or diaphoresis ENMT: Denies: throat pain or hoarseness Card: Denies: chest pain, palpitations, lightheadedness or syncope Resp: Denies: dyspnea, productive cough or wheezing GI: Denies: abdominal pain, nausea, vomiting, diarrhea, constipation, bloating, change in stool character or hematochezia : Denies: flank pain, difficulty voiding, dysuria, urinary frequency, urinary urgency or vaginal bleeding Musc: Denies: neck pain or back pain Skin/Breast: Denies: rash or new lesions Neuro: Denies: headache(s) or dizziness PFSH ED PFSH: Medical History No pertinent past medical history neghx: htn,dm,thyroid,dvt/pe Dysmenorrhea -Differential diagnosis of dysmenorrhea discussed with patient. Based on exam exams within normal limits. Patient did not want Pap smear done here today and she would like to [facility] as she is self-pay at this time. -Discussed I would recommend a pelvic ultrasound to rule out any other structural abnormalities causing dysmenorrhea. Discussed is definitely a possibility for the causes of dysmenorrhea would not be on my list of diagnoses. Discussed I would recommend treatment with hormones for at least 3-6 months and if there is no improvement during this time frame I think the next step would need to be a diagnostic laparoscopy to see if she truly does have endometriosis. -She and her family are in agreement with this plan of care. We'll plan for a transvaginal ultrasound in the next 2-3 weeks and I will call her with results. Abnormal uterine bleeding (AUB) 03/13/2019---> free testosterone-normal at 2.3 Prolactin-minimally elevated at 24 (normal-2-23.3) Impression: -Discussed with her that the exam today showed a normal size uterus but no definite masses. Did discuss menorrhagia could be secondary to hormonal changes like hyperthyroidism, elevated prolactin levels, estrogen/progesterone imbalance, uterine pathology like endometrial polyps, fibroids, adenomyosis or ovarian pathology like cysts. I discussed that in order to differentiate these we would need to do further testing like TSH, prolactin levels. Would also require a pelvic sonogram to further assess the uterus and ovaries. -Discussed with her that based on her symptoms she is may have heavy bleeding and is associated dysmenorrhea and I do not think she actually of endometriosis. Reviewed the differential diagnosis of dysmenorrhea-see discussion below -I discussed briefly the management of menorrhagia. I discussed that there was medical as well as surgical options. Discussed options of combined contraception as well as progesterone only medication and all her questions were answered to her satisfaction. She would like to start with combined oral contraceptive pills. -We will obtained records of all the lab work done from [facility] first and then if there are any labs pending we will do that testing. -We will contact her when we have obtained these lab results. Surgical History No pertinent past surgical history Family History Mother Hypertension Thyroid disease Grandmother Hypertension Maternal Denies family history of Colon cancer Ovarian cancer Diabetes Heart disease Breast cancer Bleeding disorder Uterine cancer Stroke Female Reproductive History: Date of last menstrual period: 11/25/24 Physical Exam Const: COMMON NORMALS: no acute distress, average body habitus, patient oriented x3, no limitations, healthy appearing, alert and well nourished GENERAL APPEARANCE: cooperative and comfortable ORIENTATION/CONSCIOUSNESS: Yes awake Eye: COMMON NORMALS: Equal, round and reactive pupils present, EOMs intact bilaterally, conjunctivae normal and normal visual burgess by confrontation CONJUNCTIVA: Yes conjunctivae normal PUPIL: Yes Equal, round and reactive pupils present Neck/C-Spine: COMMON NORMALS: full ROM, supple, no meningeal signs and no JVD Resp: COMMON NORMALS: normal respiratory effort, No retractions, No use of accessory muscles and clear to auscultation bilaterally AUSCULTATION: clear to auscultation bilaterally, no crackles, no rales, no rhonchi and no wheezes Cardio: COMMON NORMALS: no JVD, regular rate, regular rhythm, S1 normal heart sound present, S2 normal heart sound present, No gallops present (Cardio), No clicks present (Cardio), No murmurs present (Cardio), No rub (Cardio) and Peripheral pulses 2+ throughout RATE: regular rate RHYTHM: regular rhythm HEART SOUNDS: S1 normal heart sound present and S2 normal heart sound present PERIPHERAL PULSES: Peripheral pulses 2+ throughout GI: COMMON NORMALS: Normal to inspection, nondistended, normoactive bowel sounds present, Soft to palpation, non-tender, No hepatosplenomegaly present and no masses AUSCULTATION: Yes normoactive bowel sounds PALPATION: Yes Soft to palpation, No Guarding due to palpation present (GI), No Rigid due to palpation and Yes No hepatosplenomegaly present RECTAL EXAM: deferred Extremity: COMMON NORMALS: normal to inspection and full ROM Neuro: COMMON NORMALS: patient oriented x3, moves all extremities, no focal motor deficits and no sensory deficits noted SENSORIUM/ORIENTATION: Yes alert MENINGEAL SIGNS: Yes no meningeal signs Psych: COMMON NORMALS: mental status grossly normal, cooperative and speech normal SPEECH: Yes normal speech Skin: COMMON NORMALS: no rashes or lesions noted GENERAL SKIN EXAM: no rashes or lesions noted Course Vital Signs: Vital signs: Vital Signs Temperature 98.1 F 02/20/25 16:13 Pulse Rate 84 01/15/25 18:32 Respiratory Rate 16 01/15/25 18:32 Blood Pressure 135/72 01/15/25 18:32 Pulse Oximetry 94 01/15/25 18:32 Oxygen Delivery Me thod Room Air 01/15/25 16:13 MDM - General Adult Medical Decision Making [facility] for a [facility]aginal ultrasound. Here there is a single intrauterine gestation sac measuring 6 weeks and 3 days, however no pole or cardiac activity identified at this time. Recommendation was for 1 week follow-up transvaginal pelvic ultrasound. Her beta-hCG was also 2000. There was large right ovarian hemorrhagic cyst there which is likely what they saw in the clinic. Patient has been stable without any complaints here, she has OB follow-up for couple weeks however will refer her here for a sooner ultrasound. Told her to return with any pain, bleeding, syncopal episodes, or any other concerns. Verbalized understanding. I did discuss this patient's case with on-call OB, Dr. Dye, who agrees with this plan. Lab Data 01/15/25 17:40 Radiology Impressions Ultrasound 01/15/25 15:04 IMPRESSION: 1. Single intrauterine gestational sac. Sac measurement consistent with a gestation of 6 weeks and 3 days. 2. No pole or cardiac activity is identified. Recommend 1 week follow-up transvaginal pelvic ultrasound. 3. Large RIGHT ovarian hemorrhagic cyst. Laboratory Results WBC 11.83 10^3/uL (3.29-11.43) H 01/15/25 17:40 RBC 4.87 10^6/uL (3.85-5.65) 01/15/25 17:40 Hgb 14.10 g/dL (11.27-16.99) 01/15/25 17:40 Hct 41.8 % (36-47) 01/15/25 17:40 MCV 85.8 fl (85-98) 01/15/25 17:40 MCH 29.0 pg (27-33) 01/15/25 17:40 MCHC 33.7 g/dL (30-55) 01/15/25 17:40 RDW 12.2 % (12.1-15.1) 01/15/25 17:40 Plt Count 248 10^3/cmm (157-399) 01/15/25 17:40 MPV 10.4 fL (7.4-10.4) 01/15/25 17:40 Neut % (Auto) 73.8 % 01/15/25 17:40 Lymph % (Auto) 20.1 % 01/15/25 17:40 [place] % (Auto) 4.8 % 01/15/25 17:40 Eos % (Auto) 0.3 % 01/15/25 17:40 Baso % (Auto) 0.4 % 01/15/25 17:40 Neut # (Auto) 8.73 10^3/uL (1.8-7.7) H 01/15/25 17:40 Lymph # (Auto) 2.4 10^3/uL (0.8-4.8) 01/15/25 17:40 [place] # (Auto) 0.6 10^3/uL (0.2-0.9) 01/15/25 17:40 Eos # (Auto) 0.0 10^3/uL (0.0-0.8) 01/15/25 17:40 Baso # (Auto) 0.1 10^3/uL (0.0-0.1) 01/15/25 17:40 Nucleated RBC % (auto) 0 % 01/15/25 17:40 Nucleated RBCs # 0.0 /100WBC 01/15/25 17:40 Ser , Semi-Qnt 28158.00 mIU/mL 01/15/25 17:40 All radiology interpretation(s) finalized by discharge Discharge Plan Discharge Patient Disposition: Home Clinical Impression: FHR ( heart rate) nonreactive Condition: Stable Prescriptions: No Action Unable to Assess Discharge Orders: Discharge ED (Routine); Ordered 01/15/25 Ordered By: Harley Ardon Referrals: Mayela Denis, [Primary Care Provider] - Activity Restrictions/Additional Instructions: Please follow-up with OB in 1 week for repeat transvaginal ultrasound as discussed. Return with any vaginal bleeding, feeling you are in a pass out, pain, or any other concerns. Print Language: Macedonian Coding Level of Care Code ED Sales Data Analyst for [employer]
[2025-01-15 18:54] VITALS: BP 127/90; PULSE 72; O2SAT 100
--- NOTE | 2025-01-16 07:32 | DCPLANNER ---
messaged [facility] for er f/u
== END 2025-01-15 18:49 | disposition home or self-care (01) ==
PROVIDERS: Emergency Medicine; Emergency Provider Physician Assistant; PCP Internal Medicine
DX: O36.8390 Maternal care for abnormalities of the fetal heart rate or rhythm, unspecified trimester, not applicable or unspecified (principal)
CPT/HCPCS: 36415; 76801; 84702; 85025; 99284